=== PATIENT | male | born 1995 | race Caucasian/White ===

== ENCOUNTER 2022-01-05 11:11 | Emergency (ER) | payer OTHER ==
[2022-01-05 11:22] VITALS: BP 104/57; PULSE 87; TEMP 98.3; BMI 22.0
== END 2022-01-05 12:42 | disposition home or self-care (01) ==
LOC: JERFT 11:11
PROC: 0M9P3ZZ Drainage of Left Knee Bursa and Ligament, Percutaneous Approach (ICD-10-PCS; principal; 2022-01-05)
DX: M71.062 Abscess of bursa, left knee (principal)
CPT/HCPCS: 99282-25

== ENCOUNTER 2024-05-14 15:20 | Emergency (ER) | payer BC, OTHER ==
[2024-05-14 15:33] VITALS: BP 123/74; PULSE 83; RESP 20; TEMP 97.8; BMI 19.8
== END 2024-05-14 16:27 | disposition home or self-care (01) ==
LOC: FER 15:20
DX: S91.311A Laceration without foreign body, right foot, initial encounter (principal); W20.8XXA Other cause of strike by thrown, projected or falling object, initial encounter
CPT/HCPCS: 99283-25